=== PATIENT | male | born 2000 | race Caucasian/White ===

== ENCOUNTER 2022-10-24 11:14 | Emergency (ER) | payer OTHER ==
[~2022-10-24] VITALS: Ht 185.4 cm; Wt 106.2 kg
[2022-10-24 11:15] VITALS: BP 138/72
[2022-10-24 13:02] LABS: HEMATOCRIT 44.2 % (42.0-52.0); HEMOGLOBIN 15.1 g/dl (13.5-17.5); MEAN CORPUSCULAR HEMOGLOBIN 30.9 pg (27.0-33.0); MEAN CORPUSCULAR HGB CONC 34.2 g/dl (32.0-36.5); MEAN CORPUSCULAR VOLUME 90.6 fl (80.0-96.0); PLATELET COUNT, AUTOMATED 260 10^3/uL (150-450); RED BLOOD COUNT 4.88 10^6/uL (4.30-6.10); WHITE BLOOD COUNT 6.9 10^3/uL (4.0-10.0)
[2022-10-24 13:27] LABS: AMPHETAMINES LEVEL URINE NEGATIVE (NEGATIVE); BARBITURATES URINE NEGATIVE (NEGATIVE); BENZODIAZEPINES URINE NEGATIVE (NEGATIVE); CANNABINOIDS URINE NEGATIVE (NEGATIVE); COCAINE METABOLITE URINE NEGATIVE (NEGATIVE); METHADONE URINE NEGATIVE (NEGATIVE); OPIATES URINE NEGATIVE (NEGATIVE); PHENCYCLIDINE URINE NEGATIVE (NEGATIVE)
[2022-10-24 13:28] LABS: ETHYL ALCOHOL (ETHANOL) < 0.003 % (0.000-0.010)
[2022-10-24 13:30] LABS: ACETAMINOPHEN LEVEL < 2.0 UG/ML (10.0-20.0); ALBUMIN 3.9 G/DL (3.2-5.2); ALKALINE PHOSPHATASE 94 U/L (46-116); ALT/SGPT 35 U/L (7.0-40); AST/SGOT 21 U/L (<34); BILIRUBIN,DIRECT 0.2 MG/DL (<0.4); BILIRUBIN,TOTAL 0.6 MG/DL (0.3-1.2); BLOOD UREA NITROGEN 17 MG/DL (9-23); CALCIUM LEVEL 9.4 MG/DL (8.5-10.1); CARBON DIOXIDE LEVEL 27 MMOL/L (20-31); CHLORIDE LEVEL 110 MMOL/L (98-107); CREATININE FOR GFR 0.85 MG/DL (0.70-1.30); GLOMERULAR FILTRATION RATE > 60.0 (>60); GLUCOSE, FASTING 89 MG/DL (60-100); POTASSIUM SERUM 4.4 MMOL/L (3.5-5.1); SALICYLATE LEVEL < 3.0 MG/DL (<30); SODIUM LEVEL 143 MMOL/L (136-145); TOTAL PROTEIN 6.7 G/DL (5.7-8.2)
[2022-10-24 13:33] LABS: THYROID STIMULATING HORMONE 1.365 uIU/ML (0.55-4.78)
== END 2022-10-24 16:39 | disposition home or self-care (01) ==
LOC: M ED 11:14
DX: Z13.39 Encounter for screening examination for other mental health and behavioral disorders (principal); F32.A Depression, unspecified; F17.200 Nicotine dependence, unspecified, uncomplicated

== ENCOUNTER 2023-03-01 17:01 | Emergency (ER) | payer OTHER ==
[~2023-03-01] VITALS: Ht 185.4 cm; Wt 103.1 kg
[2023-03-01 17:02] VITALS: BP 137/77; TEMP 98.4
[2023-03-01] MEDS ORDERED: CYCL-707 PO (22:47)
[2023-03-01] MEDS ORDERED: LIDO5DIS41 TD (22:47)
== END 2023-03-01 22:55 | disposition home or self-care (01) ==
LOC: M ED 17:01
DX: S29.012A Strain of muscle and tendon of back wall of thorax, initial encounter (principal); M25.561 Pain in right knee